=== PATIENT | female | born 1985 | race Caucasian/White ===

== ENCOUNTER 2018-05-22 19:04 | Emergency (ER) | payer OTHER, SELFPAY ==
[~2018-05-22 19:04] MED LIST: ISOVUE-370 76%-LOCM 1 ML ONE
[2018-05-22] MEDS ORDERED: Morphine 4 MG/ML VIAL ONE (19:10)
[2018-05-22] MEDS ORDERED: Ondansetron PF 4 MG/2 ML Vial ONE (19:10)
[2018-05-22 19:47] LABS: #Basophils 0.1 thou/uL (0.0-0.2); #Eosinphils 0.2 thou/uL (0.0-0.7); #Lymphocytes 3.1 thou/uL (1.20-3.40); #Monocytes 0.5 thou/uL (0.11-0.59); #Neutrophils 3.9 thou/uL (1.40-6.50); %Basophils 0.9 % (0.0-1.0); %Lymphocytes 40.6 % (21.0-51.0); %Monocytes 6.3 % (0.0-10.0); %Neutrophils 50.2 % (42.0-75.0); Hemoglobin 14.9 g/dL (12.0-16.0); Mean Corpuscular HGB CONC 33.8 g/dL (32.0-36.0); Mean Corpuscular Hemoglobin 30.1 pg (27.0-31.0); Mean Corpuscular Volume 88.9 fL (78.0-98.0); Mean Platelet Volume 7.8 fL (7.4-10.4); Platelet Count 296 thou/uL (130-400); Red Blood Cell (RBC) Count 4.94 mill/uL (4.20-5.40); White Blood Cell (WBC) Count 7.7 thou/uL (4.8-10.8)
[2018-05-22 19:54] LABS: Prothrombin Time 12.8 SEC (12.0-14.7)
--- NOTE | 2018-05-22 20:10 | CT ---
CT CERVICAL SPINE WITH CORONAL AND SAGITTAL REFORMATIONS: 05/22/18 HISTORY: Level II trauma. FINDINGS/IMPRESSION: No fracture, subluxations or facet malalignment is identified. Discussed over the telephone to the ER physician, Dr. Shorty Roy at 8:06 p.m. POS: SCARLETT
[2018-05-22 20:14] LABS: ALT (SGPT) 154 U/L (8-55); AST (SGOT) 98 U/L (5-34); Alcohol Less than 10 mg/dL (Less than 10); Alkaline Phosphatase 88 U/L (40-150); Anion Gap 20 mmol/L (10-20); BUN (Urea Nitrogen) 14 mg/dL (7.0-18.7); Bilirubin, Total 0.6 mg/dL (0.2-1.2); Calc. Creatinine Clearance 0 mL/min (70-130); Calcium 10.5 mg/dL (7.8-10.44); Carbon Dioxide 20 mmol/L (22-29); Chloride 103 mmol/L (98-107); Estimated GFR-MDRD 69; Globulin 4.1 g/dL (2.4-3.5); Glucose 88 mg/dL (70-105); Lipase 89 U/L (8-78); Potassium 4.1 mmol/L (3.5-5.1); Protein, Total 9.1 g/dL (6.0-8.3); Sodium 139 mmol/L (136-145)
--- NOTE | 2018-05-22 20:16 | RAD ---
RIGHT ANKLE THREE VIEWS: 05/22/18 HISTORY: Trauma, right ankle pain. FINDINGS/IMPRESSION: The ankle mortise is maintained. No acute fracture or dislocation is identified. POS: MARYANN
[2018-05-22 20:23] LABS: BHCG - Serum Negative (NEGATIVE); Pregs Control Background? CLEAR/WHITE (CLR/WHITE); Pregs Control Bar Appear? YES (CONTROL BAR)
--- NOTE | 2018-05-22 20:34 | RAD ---
LEFT ANKLE THREE VIEWS: 05/22/18 HISTORY: Trauma, left ankle pain. FINDINGS/IMPRESSION: The ankle mortise is maintained. No acute fracture or dislocation is seen. POS: MARYANN
--- NOTE | 2018-05-22 20:49 | CT ---
CT BRAIN WITHOUT CONTRAST: 05/22/18 HISTORY: Level II trauma. FINDINGS: No evidence of acute infarct, hemorrhage, midline shift, or abnormal extra-axial fluid collection see n. The ventricular size is normal and the basilar cisterns patent. The bony calvarium is intact. The visualized paranasal sinuses and mastoid air cells are well aerated. IMPRESSION: No CT evidence of acute intracranial process. Results discussed over the telephone with ER physician, Dr. hSorty Roy at 8:02 p.m. POS: SCARLETT
--- NOTE | 2018-05-22 20:56 | CT ---
CT CHEST WITH IV CONTRAST CT ABDOMEN WITH IV CONTRAST CT PELVIS WITH IV CONTRAST CORONAL AND SAGITTAL REFORMATIONS OF THE THORACOLUMBAR SPINE 05/22/18 HISTORY: Level II trauma. FINDINGS: No mediastinal hematoma or intimal flap in the aorta is seen to suggest transection. No pleural or pe ricardial effusions are seen. No pneumothoraces or pulmonary contusions are identified. The liver, spleen, pancreas, adrenal glands, and kidneys are intact. No free air, free fluid is seen in the abdomen or pelvis. The uterus and ovaries are present. The urinary bladder and gallbladder als o appear intact. There are bilateral pars articularis defects at L5 level with minimal anterolisthesis of L5 over S1. No acute fracture or subluxation is otherwise seen in the thoracolumbar spine. IMPRESSION: No CT evidence of acute intrathoracic or solid organ injury. Discussed over the telephone with ER physician, Dr. Shorty Roy at 8:13 p.m. POS: SCARLETT
== END 2018-05-22 21:23 | disposition home or self-care (01) ==
LOC: ERS 19:04
DX: R74.0 Nonspecific elevation of levels of transaminase and lactic acid dehydrogenase [LDH] (principal); F41.9 Anxiety disorder, unspecified; F32.9 Major depressive disorder, single episode, unspecified; K21.9 Gastro-esophageal reflux disease without esophagitis; V43.52XA Car driver injured in collision with other type car in traffic accident, initial encounter
CPT/HCPCS: 70450; 71260; 72125; 74177; 80053; 80307; 83690; 84703; 85025; 85610; 85730; 96374; 96375; J2270; J2405; Q9966

== ENCOUNTER 2018-08-03 08:58 | Inpatient (IN) | payer SELFPAY ==
[2018-08-03] MEDS ORDERED: Ondansetron PF 4 MG/2 ML Vial ONE (09:35)
[2018-08-03] MEDS ORDERED: Morphine 4 MG/ML VIAL ONE ×2 (09:35→12:49)
[2018-08-03 09:52] LABS: #Basophils 0.1 thou/uL (0.0-0.2); #Eosinphils 0.1 thou/uL (0.0-0.7); #Lymphocytes 2.2 thou/uL (1.20-3.40); #Monocytes 0.4 thou/uL (0.11-0.59); #Neutrophils 4.4 thou/uL (1.40-6.50); %Eosinophils 1.9 % (0.0-10.0); %Lymphocytes 30.5 % (21.0-51.0); %Monocytes 5.2 % (0.0-10.0); %Neutrophils 61.4 % (42.0-75.0); Hemoglobin 14.7 g/dL (12.0-16.0); Mean Corpuscular HGB CONC 33.3 g/dL (32.0-36.0); Mean Corpuscular Hemoglobin 29.1 pg (27.0-31.0); Mean Corpuscular Volume 87.4 fL (78.0-98.0); Mean Platelet Volume 7.8 fL (7.4-10.4); Platelet Count 308 thou/uL (130-400); RBC Distribution Width 12.2 % (11.5-14.5); Red Blood Cell (RBC) Count 5.05 mill/uL (4.20-5.40); White Blood Cell (WBC) Count 7.1 thou/uL (4.8-10.8)
[2018-08-03 09:53] LABS: Bilirubin Negative (Negative); Blood, Urine Negative (Negative); Clarity CLEAR (Clear); Glucose, Urine (Dipstick) Negative (Negative); Leukocyte Negative (Negative); Nitrite Negative (Negative); Protein, Urine (Dipstick) Negative (Neg-Trace); Specific Gravity, Urine 1.027 (1.002-1.036); Urobilinogen 0.2 mg/dL (0.2-1.0); pH, Urine 5.5 (5.0-9.0)
[2018-08-03 09:54] LABS: BHCG - Serum Negative (NEGATIVE); Pregs Control Background? CLEAR/WHITE (CLR/WHITE); Pregs Control Bar Appear? YES (CONTROL BAR)
[2018-08-03 10:10] LABS: ALT (SGPT) 181 U/L (8-55); AST (SGOT) 110 U/L (5-34); Albumin 4.9 g/dL (3.5-5.0); Alkaline Phosphatase 81 U/L (40-150); Anion Gap 15 mmol/L (10-20); BUN (Urea Nitrogen) 15 mg/dL (7.0-18.7); Bilirubin, Total 0.7 mg/dL (0.2-1.2); Calc. Creatinine Clearance 0 mL/min (70-130); Calcium 10.3 mg/dL (7.8-10.44); Carbon Dioxide 22 mmol/L (22-29); Chloride 105 mmol/L (98-107); Estimated GFR-MDRD 78; Globulin 3.8 g/dL (2.4-3.5); Glucose 104 mg/dL (70-105); Potassium 4.3 mmol/L (3.5-5.1); Protein, Total 8.7 g/dL (6.0-8.3); Sodium 138 mmol/L (136-145)
[2018-08-03 10:23] LABS: Lipase 2916 U/L (8-78)
--- NOTE | 2018-08-03 10:51 | ULT ---
US Gallbladder RUQ History: [Pain] Comparison: Ultrasound 2017 Findings: Real-time grayscale and color evaluation of the abdomen was performed. Diffuse increased hepatic echotexture. Pancreas not well seen. Visualized portion of the IVC is unrem arkable. There is no cholelithiasis. The right kidney measures 10.9 x 4.2 x 6.1 cm without mass, hydronephrosi s, or abnormal calcifications. Portal vein is patent. Common bile duct measures 4 mm. Impression: Hepatic steatosis. No acute gallbladder pathology.
[2018-08-03] MEDS ORDERED: Ondansetron PF 4 MG/2 ML Vial IVP PRN (12:05)
[2018-08-03] MEDS ORDERED: Senokot S 8.6-50 MG TAB PO PRN (12:05)
[2018-08-03] MEDS ORDERED: Calcium Carbonate 500 MG ChewTAB PO PRN (12:05)
[2018-08-03] MEDS ORDERED: hydrALAZINE 20 MG/ML VIAL SLOW IVP PRN (12:05)
[2018-08-03] MEDS ORDERED: Meperidine HCl/PF 25 MG/ML VIAL SLOW IVP PRN (12:05)
[2018-08-03] MEDS ORDERED: Bisacodyl 5 MG TAB PO PRN (12:05)
[2018-08-03] MEDS ORDERED: Benzonatate 100 MG CAP PO PRN (12:05)
[2018-08-03] MEDS ORDERED: Diabetic Tussin 200 MG/10 ML UDCUP PO PRN (12:05)
[2018-08-03] MEDS: Acetaminophen 325 MG TAB PO PRN (12:17)
[2018-08-03] MEDS ORDERED: Acetaminophen 325 MG TAB ONE (12:18)
[2018-08-03 12:40] LABS: Amphetamine Not Detected (NotDetected); Barbiturates Screen Not Detected (NotDetected); Benzodiazepine Screen Not Detected (NotDetected); Cocaine Metabolite Screen Not Detected (NotDetected); Medtox Control Line Valid? VALID (VALID); Medtox Reader # READER 1; Methadone Not Detected (NotDetected); Methamphetamine Not Detected (NotDetected); Opiate Screen Not Detected (NotDetected); Oxycodone Screen Not Detected (NotDetected); Phencyclidine (PCP) Not Detected (NotDetected); THC/Cannabinoid Screen Not Detected (NotDetected); Tricyclic Screen Not Detected (NotDetected)
[2018-08-03 12:46] LABS: Alcohol Less than 10 mg/dL (Less than 10); Magnesium 2.5 mg/dL (1.6-2.6); Phosphorus 3.7 mg/dL (2.3-4.7)
[2018-08-03] MEDS ORDERED: Bisacodyl 10 MG SUPP PR PRN (12:55)
--- NOTE | 2018-08-03 13:21 | CT ---
CT ABDOMEN AND PELVIS WITH ORAL AND IV CONTRAST: HISTORY: Acute pancreatitis. COMPARISON: 05/22/2018 CORRELATION: Gallbladder ultrasound from same date. FINDINGS: The lung bases are clear. There are changes of hepatic steatosis without focal mass or abnormal bilia ry ductal dilatation. No calcified gallstones are seen. The spleen, adrenal glands and kidneys are normal. The pancreas demonstrates a normal appearance. No pancreatic calcifications or abnormal pancreatic du ctal dilatation is seen. No portal or splenic venous thrombosis is seen. No free air, free fluid or lymphadenopathy seen in the abdomen or pelvis. No abnormally loculated flu id collections are seen to suggest pseudocyst or abscess formation. A normal-appearing appendix is present. The small bowel loops are not abnormally dilated. Uterus and ovaries are present. Bilateral pars articularis defects at L5 level are redemonstrated. IMPRESSION: 1. Hepatic steatosis. 2. No evidence of complications of pancreatitis.
[2018-08-03] MEDS ORDERED: ISOVUE-370 76%-LOCM 1 ML ONE (13:41)
--- NOTE | 2018-08-03 13:51 | HP ---
PRIMARY CARE PHYSICIAN: None. CHIEF COMPLAINT: Abdominal pain. HISTORY OF PRESENTING ILLNESS: Ms. Gaspar is a 32-year-old female with past medical history of pancreatitis during second trimester of in 2016, as well as Salmonella bacteremia at the same time, and epilepsy, who presented to the emergency room with above-mentioned complaint. History is mainly obtained by the patient herself, and electronic medical records have been reviewed. Case has been discussed with admitting ER physician, Dr. Mon. The patient was last admitted to our facility in 2016. At that time, she was in second trimester of . She was diagnosed with pancreatitis and was also found to have Salmonella bacteremia. She came to the emergency room today with a few hours onset of severe abdominal pain. She reports that they had barbecue last evening and went out to [employer] to have ice cream. She did not have any alcohol intake with a barbecue, and she does not drink on a daily basis. Shortly after eating ice cream, she started to have some mild pain starting in the back coming to the front. Later in the night, it became more and more severe, and she describes it as a very sharp pain starting from the back coming to the front, more than 10/10 in intensity. The only thing that would help her with the pain is some heat from her 's body when she would lie against him. She felt nauseated, but did not throw up. She reports constipation for the last 3 days. Her normal bowel movement frequency is at least 1 to 2 every day. She also has been feeling some burning micturition. She also has noticed some smell to her urine. When her pain did not get better, she came to the emergency room. She denies any recent illnesses. She denies any fever, chills, cough, shortness of breath, or chest pain. She denies any blood in her urine or her stools. Upon presentation to the emergency room, she was hemodynamically stable with a blood pressure of 104/61, respirations 18, pulse of 74, saturating 98% on room air. Her examination revealed elevated lipase to 2916. Serum test was negative. Her AST and ALT were also elevated to 100 range. She was given IV fluids and pain medications, and is now being admitted for further evaluation and care with a presumptive diagnosis of acute pancreatitis. Her urinalysis is unremarkable. Urine drug screen ordered by myself is unremarkable. Plasma alcohol level ordered by myself is negligible. Her CBC is within normal limits. During her last acute pancreatitis attack, specific cause was not found. A CT scan done at that time showed fatty liver but no gallstones. An ultrasound done in the ER today also confirms finding of fatty liver but no gallstones. PAST MEDICAL HISTORY: 1. History of epilepsy. 2. History of pancreatitis and salmonella bacteremia in second trimester of in 2016. 3. GERD. 4. The patient reports that her menstrual cycle is quite irregular. Her last cycle was last month that was after a gap of about 4 or 5 months. PAST SURGICAL HISTORY: 1. section. 2. Right knee meniscal tear repair. PSYCHIATRIC HISTORY: Anxiety and depression. SOCIAL HISTORY: No history of drug, tobacco, or alcohol abuse. She is and lives with the family. ALLERGIES: LATEX AND NATURAL RUBBER. HOME MEDICATIONS: None. FAMILY HISTORY: Significant for coronary artery disease and stroke in her grandparents. Bipolar disorder. History of appendicitis in multiple family members. No family history of renal stones or pancreatitis. REVIEW OF SYSTEMS: A 14-point review of system is done. It is negative except for those mentioned in the history and physical. LABORATORY DATA: Her CBC is within normal limit and unremarkable. Serum chemistries unremarkable. Phosphorus and magnesium are within normal limit. AST is 110, ALT elevated to 181, total serum protein is 8.7, normal alkaline phosphatase, and normal total bilirubin. Her lipase is 2916. Urinalysis, unremarkable. Urine drug screen negative. Plasma alcohol less than 10. Serum IgA total 188, which is within normal limits. Abdominal ultrasound by my review shows fatty liver, but no evidence of gallstones or CBD dilatation. CBD is measured 4 mm by the radiologist. PHYSICAL EXAMINATION: VITAL SIGNS: Upon presentation, blood pressure 104/61, pulse of 74, respirations 18, saturating 98% on room air, and temperature 97.8. GENERAL: She is sitting at the side of the bed, appears somewhat uncomfortable. No acute distress. Awake, alert, and oriented x3. HEENT: Mucous membrane is moist and pink. No oropharyngeal exudate or erythema. Head is normocephalic and atraumatic. Pupils are equal, reactive to light and accommodation. Extraocular movement intact. NECK: Supple without any lymphadenopathy, JVD, or bruit. CHEST: Clear to auscultation without any wheezing, rales, or rhonchi. HEART: Rate and rhythm are regular without any murmurs, rubs, or gallops. ABDOMEN: Tender to palpation starting from the right CVA and anteriorly, mainly the epigastric region and right upper quadrant. Bowel sounds are normal. No masses. No peritoneal signs. EXTREMITIES: Free of any cyanosis, clubbing, or edema. NEUROLOGICAL: Nonfocal. SKIN: Free of any rashes or bruises. Feels warm and dry to touch. PSYCHIATRIC: Normal affect. IMPRESSION AND PLAN: 1. Acute pancreatitis. Etiology is not clear at this time. We will obtain a CT scan for further clarification. The patient has had history of pancreatitis in the past, and we will rule out any complications like chronic pancreatitis or pseudocyst formation. We will request consultation with Gastroenterology at this time and keep her n.p.o. and provide her with generous IV fluids. We will also send a lipid panel. Urine drug screen, plasma alcohol level, and serum IgA levels were checked and were found to be within normal limits. The patient is currently hemodynamically stable. p.r.n. IV pain medications will be provided as well as p.r.n. antiemetics. 2. History of epilepsy. Restart home medications as confirmed. In 2016, the patient was on Keppra. Her home medications need to be reconciled. 3. History of Salmonella bacteremia and pancreatitis in 2016. At this time, the patient is not exhibiting any signs or symptoms of sepsis. If she has diarrhea, we can check her stool for bacteria including Clostridium difficile. 4. Deep venous thrombosis and gastrointestinal prophylaxis and p.r.n. medications. DISPOSITION: Ms. Gaspar is currently being admitted to the medical floor for acute pancreatitis of unclear etiology. Estimated length of stay at this time is at least 2 to 3 midnights. Further management will depend upon her clinical course. Job ID: [id number]
[2018-08-03 15:30] VITALS: BMI 42.0
[2018-08-03] MEDS: Sodium Chloride 0.9% 1,000 ML IV SCH ×2 (16:00→16:42)
[2018-08-03] MEDS ORDERED: Sodium Chloride 0.9% 1,000 ML IV SCH (18:05)
[2018-08-03] MEDS: Famotidine/PF 20 mg/2ml Vial SLOW IVP SCH (20:16)
[2018-08-03] MEDS: Ondansetron PF 4 MG/2 ML Vial IVP PRN (20:40)
--- NOTE | 2018-08-03 22:29 | CON ---
DATE OF CONSULTATION: 08/03/2018 REASON FOR CONSULTATION: Acute pancreatitis. CONSULTING PROVIDER: Dr. Magali Hart. HISTORY OF PRESENT ILLNESS: The patient is a 32-year-old female with a past medical history of seizure disorder, GERD, anxiety, depression, irregular menstrual cycles, Salmonella bacteremia in 2016, and acute pancreatitis also in 2016, presenting with complaints of abdominal pain. She states that she was in her usual state of health until yesterday evening when she had the acute onset of increased left upper quadrant abdominal pain. This pain was characterized as a sharp/stabbing/pressure type pain, was constant, radiated to the left upper back and midepigastric region and reached a severity of approximately 9-10/10. The pain was better with pressure to the midepigastric region, placement of heat to the affected area and not moving/decreased physical activity. The pain was worse with sitting up, walking and not having a bowel movement. Associated symptoms included increased nausea, but no actual vomiting as well as a harder to pass stool last night that has been common for the patient. Otherwise, she denies any fevers, chills, hematemesis, melena, hematochezia, lower extremity or upper extremity swelling ascites, encephalopathy, dysphagia, odynophagia, or weight loss. Of note, yesterday evening the patient was consuming a larger/fatty meal consisting primarily of barbecue and later dairy Field ice cream, but otherwise denies any use of medications, herbal supplements or [id number] substances that could have contributed. REVIEW OF SYSTEMS: A 10 category review of systems was obtained with all responses negative except for the pertinent positives as listed in HPI. PAST MEDICAL HISTORY: As per HPI. PAST SURGICAL HISTORY: section x1, right knee meniscal tear repair. FAMILY HISTORY: Denies any GI malignancies or pancreatitis. SOCIAL HISTORY: Denies any tobacco, alcohol, or illicit drug use. OUTPATIENT MEDICATIONS: None. ALLERGIES: LATEX AND NATURAL RUBBER. PHYSICAL EXAMINATION: VITAL SIGNS: Temperature 97.3, pulse 75, blood pressure 109/73, respiratory rate 16, saturating 97% on room air. GENERAL: The patient was lying in bed, in no acute distress. Alert and oriented x4. HEENT: NECK: Supple. No JVD or scleral icterus noted. Normocephalic, atraumatic. CARDIOVASCULAR: Regular rate and rhythm with no discernible murmurs, gallops, or rubs. RESPIRATORY: Clear to auscultation bilaterally with no discernible wheezes or rales. ABDOMEN: Hypoactive bowel sounds. Soft, nondistended. Tenderness to palpation in the midepigastric left upper quadrant and left mid abdomen. EXTREMITIES: No cyanosis, clubbing, or edema. LABORATORY DATA: CBC with a white blood cell count of 7.1, hemoglobin 14.7, hematocrit 44.1, platelets 308. Chemistry with a sodium of 138, potassium 4.3, chloride 105, CO2 of 22, BUN 15, creatinine 0.85, glucose 104, AST 110, ALT 181, alkaline phosphatase 81, total bilirubin 0.7, albumin 4.9, calcium 10.3, lipase 2916. test negative. Urinalysis was normal and toxicology did not show any substances. IMAGING DATA: Right upper quadrant ultrasound was obtained on August 03, 2018, which showed diffuse increased hepatic echotexture consistent with hepatic steatosis, but otherwise did not show any acute gallbladder pathology nor did it show any dilation of the common bile duct, which measured approximately [address] of the abdomen and pelvis was also obtained on August 03, 2018, which then echoed changes consistent with hepatic steatosis without focal mass or abnormal biliary ductal dilatation. No calcified gallstones were seen. The pancreas demonstrated a normal appearance with no pancreatic calcifications or abnormal pancreatic ductal dilatation. No free air, free fluid or lymphadenopathy was seen. ASSESSMENT AND PLAN: The patient is a 32-year-old female with past medical history of seizure disorder, gastroesophageal reflux disorder, anxiety, depression, irregular menstrual cycles, Salmonella bacteremia in 2016 and acute pancreatitis in 2016, presenting with recurrent acute pancreatitis. Recurrent acute pancreatitis: The patient is presenting with acute onset of left upper quadrant abdominal pain, which radiates to the midepigastric and left upper back and characterized as a stabbing/pressure type sensation that is constant and reaches a severity of 9-10/10. When compared to her prior pancreatitis pain, this pain is very similar in terms of its character and location. Upon review of the patient's chart, in 2016, she was noted to have Salmonella bacteremia as well as an ongoing at the time of her first episode of acute pancreatitis and while the formation of gallstones/microlithiasis is common during , there was no data or imaging at that time to lend credence to that diagnosis rather the Salmonella was more likely the causative etiology of her acute pancreatitis being one of the few infections that can cause this particular disease (mycoplasma, Legionella and leptospira can also cause it as well). At this time per labs and imaging, she has what would be considered acute uncomplicated pancreatitis with lack of inflammatory changes around the pancreas, pseudocyst formation or necrosis. At this point, the differential for the current etiology for pancreatitis could be microlithiasis (less likely), hypertriglyceridemia, trauma (the patient did land on her stomach hard yesterday evening), recurrent infection (less likely) or recurrent idiopathic pancreatitis. RECOMMENDATIONS: 1. We would obtain blood culture x2 to assess for possible bacteremia contributing to her current pancreatitis at this time albeit unlikely. 2. We would continue with aggressive IV fluid resuscitation over the next 24 hours. 3. We would maintain an n.p.o. status until tomorrow morning when one could possibly consider advancing her diet to clear liquid diet. 4. Pain control per primary team. Agree with aggressive antiemetic control. 5. We would follow up on lipid profile in the morning for possible hypertriglyceridemia contributing to her pancreatitis. 6. We will continue to follow. Please call with any questions. Job ID: [id number]
[2018-08-04] MEDS: Sodium Chloride 0.9% 1,000 ML IV SCH ×3 (00:29→20:17)
[2018-08-04 05:22] LABS: #Basophils 0.1 thou/uL (0.0-0.2); #Eosinphils 0.1 thou/uL (0.0-0.7); #Lymphocytes 2.5 thou/uL (1.20-3.40); #Monocytes 0.3 thou/uL (0.11-0.59); #Neutrophils 2.9 thou/uL (1.40-6.50); %Basophils 0.9 % (0.0-1.0); %Eosinophils 2.4 % (0.0-10.0); %Lymphocytes 42.9 % (21.0-51.0); %Monocytes 5.2 % (0.0-10.0); %Neutrophils 48.5 % (42.0-75.0); Hemoglobin 12.8 g/dL (12.0-16.0); Mean Corpuscular HGB CONC 32.9 g/dL (32.0-36.0); Mean Corpuscular Hemoglobin 29.5 pg (27.0-31.0); Mean Corpuscular Volume 89.8 fL (78.0-98.0); Mean Platelet Volume 7.6 fL (7.4-10.4); Platelet Count 236 thou/uL (130-400); RBC Distribution Width 12.2 % (11.5-14.5); Red Blood Cell (RBC) Count 4.34 mill/uL (4.20-5.40); White Blood Cell (WBC) Count 5.9 thou/uL (4.8-10.8)
[2018-08-04 05:46] LABS: ALT (SGPT) 122 U/L (8-55); AST (SGOT) 65 U/L (5-34); Albumin 4.1 g/dL (3.5-5.0); Alkaline Phosphatase 66 U/L (40-150); Anion Gap 12 mmol/L (10-20); BUN (Urea Nitrogen) 10 mg/dL (7.0-18.7); Bilirubin, Total 0.6 mg/dL (0.2-1.2); Calc. Creatinine Clearance 165 mL/min (70-130); Calcium 9.6 mg/dL (7.8-10.44); Carbon Dioxide 24 mmol/L (22-29); Cardiac Risk 6.2 (Less than 4.5); Chloride 108 mmol/L (98-107); Cholesterol 235 mg/dl (< 200 Desired); Estimated GFR-MDRD 80; Globulin 3.2 g/dL (2.4-3.5); Glucose 88 mg/dL (70-105); HDL Cholesterol 38 mg/dL (>60 Neg Risk); LDL Cholesterol, Calculated 165 mg/dL; Lipase 496 U/L (8-78); Potassium 4.1 mmol/L (3.5-5.1); Protein, Total 7.3 g/dL (6.0-8.3); Sodium 140 mmol/L (136-145); Triglycerides 159 mg/dL (Less than 150)
[2018-08-04] MEDS: traMADol HCl 50 MG TAB PO PRN (05:47)
[2018-08-04] MEDS: Ondansetron PF 4 MG/2 ML Vial IVP PRN ×3 (08:09→23:30)
[2018-08-04] MEDS: Enoxaparin Sodium 40 MG/0.4 ML SYRINGE SC SCH (08:09)
[2018-08-04] MEDS: Famotidine/PF 20 mg/2ml Vial SLOW IVP SCH ×2 (08:09→20:16)
--- NOTE | 2018-08-04 10:42 | PDOC.PN ---
- Subjective Encounter Start Date: 08/04/18 Encounter Start Time: 07:50 -: old records requested/rev Patient seen and examined. No new complaints. No overnight events less abdominal pain, wants to eat - Objective MAR Reviewed: Yes Vital Signs & Weight: Vital Signs (12 hours) Temp Pulse Resp BP BP Pulse Ox 08/04/18 08:00 97 08/04/18 07:11 98.1 F 71 19 125/80 97 08/04/18 04:00 98.0 F 78 18 113/75 97 08/03/18 23:39 98.5 F 69 18 97/66 98 Weight Weight 236 lb 15.951 oz I&O: 08/03/18 08/04/18 08/05/18 06:59 06:59 06:59 Intake Total 1670 Balance 1670 Result Diagrams: 08/04/18 04:42 08/04/18 04:42 Radiology Reviewed by me: Yes Phys Exam - Physical Examination Constitutional: NAD HEENT: PERRLA, moist MMs, sclera anicteric Neck: no JVD, supple Respiratory: no wheezing, no rales, no rhonchi Cardiovascular: RRR, no significant murmur, no rub Gastrointestinal: soft, no distention, positive bowel sounds Musculoskeletal: no edema, pulses present Neurological: non-focal, normal sensation, moves all 4 limbs Lymphatic: no nodes Psychiatric: normal affect, A&O x 3 Skin: no rash, normal turgor Dx/Plan (1) Acute pancreatitis Code(s): K85.90 - ACUTE PANCREATITIS WITHOUT NECROSIS OR INFECTION, UNSP Status: Acute (2) Anxiety and depression Code(s): F41.9 - ANXIETY DISORDER, UNSPECIFIED; F32.9 - MAJOR DEPRESSIVE DISORDER, SINGLE EPISODE, UNSPECIFIED Status: Chronic (3) Epilepsy Code(s): G40.909 - EPILEPSY, UNSP, NOT INTRACTABLE, WITHOUT STATUS EPILEPTICUS Status: Chronic (4) Hepatic steatosis Code(s): K76.0 - FATTY (CHANGE OF) LIVER, NOT ELSEWHERE CLASSIFIED Status: Chronic (5) Morbid obesity with BMI of 40.0-44.9, adult Code(s): E66.01 - MORBID (SEVERE) OBESITY DUE TO EXCESS CALORIES; Z68.41 - BODY MASS INDEX (BMI) 40.0-44.9, ADULT Status: Chronic - Plan cont current plan of care * medication reviewed as below * symptomatic treatment * repeat labs tomorrow * start clear liquid diet today * pain controlled and improving. Review of Systems - Review of Systems ENT: negative: Ear Pain, Ear Discharge, Nose Pain, Nose Discharge, Nose Congestion, Mouth Pain, Mouth Swelling, Throat Pain, Throat Swelling, Other Respiratory: negative: Cough, Dry, Shortness of Breath, Hemoptysis, SOB with Excertion, Pleuritic Pain, Sputum, Wheezing Cardiovascular: negative: chest pain, palpitations, orthopnea, paroxysmal nocturnal dyspnea, edema, light headedness, other Gastrointestinal: Abdominal Pain. negative: Nausea, Vomiting, Diarrhea, Constipation, Melena, Hematochezia, Other Genitourinary: negative: Dysuria, Frequency, Incontinence, Hematuria, Retention , Other Musculoskeletal: negative: Neck Pain, Shoulder Pain, Arm Pain, Back Pain, Hand Pain, Leg Pain, Foot Pain, Other Skin: negative: Rash, Lesions, Guru, Bruising, Other - Medications/Allergies Allergies/Adverse Reactions: Allergies Allergy/AdvReac Type Severity Reaction Status Date / Time latex Allergy Mild Rash Verified 12/18/15 16:43 Medications: Current Medications Acetaminophen (Tylenol) 650 mg PO Q4H PRN PRN Reason: Headache/Fever/Mild Pain (1-3) Last Admin: 08/03/18 12:17 Dose: 650 mg Benzonatate (Tessalon) 100 mg PO Q6H PRN PRN Reason: Cough Bisacodyl (Dulcolax) 10 mg PO DAILYPRN PRN PRN Reason: Constipation Bisacodyl (Dulcolax) 10 mg [place] Q8H PRN PRN Reason: Constipation Calcium Carbonate (Tums) 1,000 mg PO Q4H PRN PRN Reason: Heartburn or Indigestion Enoxaparin Sodium (Lovenox) 40 mg SC 0900 [facility] Last Admin: 08/04/18 08:09 Dose: 40 mg Famotidine (Pepcid) 20 mg SLOW IVP BID [facility] Last Admin: 08/04/18 08:09 Dose: 20 mg Guaifenesin (Robitussin Sf) 200 mg PO Q4H PRN PRN Reason: Cough Hydralazine HCl (Apresoline) 10 mg SLOW IVP Q4H PRN PRN Reason: SBP > 170 and HR < 70 Sodium Chloride (Normal Saline 0.9%) 1,000 mls @ 100 mls/hr IV .Q10H MARÍA Last Admin: 08/04/18 08:20 Dose: 1,000 mls Ondansetron HCl (Zofran) 4 mg IVP Q6H PRN PRN Reason: Nausea/Vomiting Last Admin: 08/04/18 08:09 Dose: 4 mg Senna/Docusate Sodium (Senokot S) 2 tab PO BID PRN PRN Reason: Constipation Sodium Chloride (Flush - Normal Saline) 10 ml IVF Q12HR [facility] Last Admin: 08/04/18 08:20 Dose: 10 ml Sodium Chloride (Flush - Normal Saline) 10 ml IVF PRN PRN PRN Reason: Saline Flush Tramadol HCl (Ultram) 50 mg PO Q4H PRN PRN Reason: Moderate Pain (4-6) Last Admin: 08/04/18 05:47 Dose: 50 mg
--- NOTE | 2018-08-04 14:05 | PRG ---
DATE OF SERVICE: 08/04/2018 REASON FOR CONSULTATION: Acute uncomplicated pancreatitis. SUBJECTIVE: The patient states that she is feeling better today with significantly improved midepigastric abdominal pain when compared to prior to admission. Currently, she states that her pain is approximately 2 to 3/10 in severity. She was able to tolerate a clear liquid diet earlier this morning and continues to be hungry with no increase in her abdominal pain, nausea, or vomiting after ingestion of this morning food. She did have some increased nausea and vomiting last night with administration of pain medication (Demerol), but this has since resolved. Currently, she denies any nausea, vomiting, fevers, chills, GI bleeding, ascites, or encephalopathy. OBJECTIVE: VITAL SIGNS: Temperature 98.1, pulse 71, blood pressure 125/80, respiratory rate 19, and saturating 97% on room air. GENERAL: The patient is lying in bed, in no acute distress. Alert and oriented x4. CARDIOVASCULAR: Regular rate and rhythm. RESPIRATORY: Clear to auscultation bilaterally. ABDOMEN: Normoactive bowel sounds. Soft, nondistended, mild tenderness to palpation in the midepigastric region. EXTREMITIES: No cyanosis, clubbing, or edema. LABORATORY DATA: CBC with a white blood cell count of 5.9, hemoglobin 12.8, hematocrit 39, and platelets 236. Chemistry with a sodium of 140, potassium 4.1, chloride 108, CO2 of 24, BUN 10, creatinine 0.83, glucose 88. AST 65, ALT 122, alkaline phosphatase 66, total bilirubin 0.6, triglycerides 159, total cholesterol 235, LDL 165. IMAGING DATA: No current GI imaging is available for review. ASSESSMENT AND PLAN: The patient is a 32-year-old female with past medical history of seizure disorder, gastroesophageal reflux disease, anxiety, depression, irregular menstrual cycle, Salmonella bacteremia in 2016, and prior episode of acute pancreatitis also in 2016, presenting with recurrent acute pancreatitis. Recurrent acute pancreatitis: The patient is presenting with a clinical picture as well as image and laboratory data consistent with recurrent acute pancreatitis. Upon review of the patient's chart, in 2016, she was noted to have Salmonella bacteremia, which could have potentially contributed to her initial episode of pancreatitis. However, at this time, there is no obvious etiology for her recurrent attack of pancreatitis during this admission and maybe more related to just her prior history of pancreatitis. With her triglycerides being approximately 159, the likelihood of hypertriglyceridemia generating pancreatitis is highly unlikely. Current differential could include microlithiasis (less likely), pancreatic divisum (less likely), trauma to the midepigastric region, recurrent infection (less likely), or recurrent idiopathic pancreatitis (more likely). RECOMMENDATIONS: 1. We will continue with IV fluid resuscitation at the current rate, given the increased dose of IV fluids over the last 24 hours and response to treatment evidenced by a decreased BUN. 2. We would advance the patient's diet as tolerated. 3. Pain control per Primary Team. 4. I will follow up on the serum IgG4 for possible autoimmune pancreatitis, although this is a much less likely diagnosis. 5. We will continue to trend LFTs daily for response to treatment with most likely etiology being pancreatic inflammation causing inflammation of the liver. We will sign off at this time. Please call with any additional questions. Job ID: [id number]
[2018-08-04] MEDS: Acetaminophen 325 MG TAB PO PRN (18:10)
[2018-08-05 08:11] LABS: #Basophils 0.1 thou/uL (0.0-0.2); #Eosinphils 0.1 thou/uL (0.0-0.7); #Lymphocytes 2.2 thou/uL (1.20-3.40); #Monocytes 0.2 thou/uL (0.11-0.59); #Neutrophils 2.3 thou/uL (1.40-6.50); %Basophils 1.2 % (0.0-1.0); %Lymphocytes 44.5 % (21.0-51.0); %Monocytes 4.8 % (0.0-10.0); %Neutrophils 47.6 % (42.0-75.0); Hemoglobin 12.9 g/dL (12.0-16.0); Mean Corpuscular HGB CONC 33.8 g/dL (32.0-36.0); Mean Corpuscular Hemoglobin 30.1 pg (27.0-31.0); Mean Corpuscular Volume 88.9 fL (78.0-98.0); Mean Platelet Volume 7.8 fL (7.4-10.4); Platelet Count 229 thou/uL (130-400); RBC Distribution Width 12.2 % (11.5-14.5); Red Blood Cell (RBC) Count 4.29 mill/uL (4.20-5.40); White Blood Cell (WBC) Count 4.9 thou/uL (4.8-10.8)
[2018-08-05 08:27] LABS: ALT (SGPT) 109 U/L (8-55); AST (SGOT) 69 U/L (5-34); Albumin 3.9 g/dL (3.5-5.0); Alkaline Phosphatase 63 U/L (40-150); Anion Gap 12 mmol/L (10-20); BUN (Urea Nitrogen) 8 mg/dL (7.0-18.7); Bilirubin, Total 0.5 mg/dL (0.2-1.2); Calc. Creatinine Clearance 169 mL/min (70-130); Calcium 9.3 mg/dL (7.8-10.44); Carbon Dioxide 23 mmol/L (22-29); Chloride 108 mmol/L (98-107); Estimated GFR-MDRD 82; Glucose 91 mg/dL (70-105); Lipase 293 U/L (8-78); Potassium 3.7 mmol/L (3.5-5.1); Protein, Total 6.9 g/dL (6.0-8.3); Sodium 139 mmol/L (136-145)
[2018-08-05] MEDS: Famotidine/PF 20 mg/2ml Vial SLOW IVP SCH (09:28)
[2018-08-05] MEDS: Sodium Chloride 0.9% 1,000 ML IV SCH ×3 (09:29→21:49)
[2018-08-05] MEDS: Enoxaparin Sodium 40 MG/0.4 ML SYRINGE SC SCH (09:29)
--- NOTE | 2018-08-05 16:28 | PDOC.PN ---
- Subjective Encounter Start Date: 08/05/18 Encounter Start Time: 16:25 Subjective: f/u for acute pancreatitis tx conservatively with IVF's, pain control -: and NPO. Currently advanced to full liquids and tolerating. Minimal -: abd pain and lipase trending down. - Objective MAR Reviewed: Yes Vital Signs & Weight: Vital Signs (12 hours) Temp Pulse Resp BP Pulse Ox 08/05/18 08:00 97.9 F 72 18 104/71 98 Weight Admit Weight 236 lb 15.951 oz Weight 236 lb 15.951 oz I&O: 08/04/18 08/05/18 08/06/18 06:59 06:59 06:59 Intake Total 1670 2100 Balance 1670 2100 Result Diagrams: 08/05/18 07:07 08/05/18 07:07 Additional Labs: Microbiology 08/04/18 12:19 Venous blood - Right Hand Blood Culture - Preliminary Specimen has been received and culture in progress. No Growth to date. 08/04/18 12:14 Venous blood - Left Hand Blood Culture - Preliminary Specimen has been received and culture in progress. No Growth to date. Laboratory Tests 08/03/18 08/04/18 08/05/18 09:41 04:42 07:07 AST 110 H 65 H 69 H ALT 181 H 122 H 109 H Triglycerides 159 H Cholesterol 235 H LDL Cholesterol, Calc 165 HDL Cholesterol 38 Lipase 2916 H 496 H 293 H Radiology Reviewed by me: Yes (CT abd/pel - no acute process, hepatic steatosis) Phys Exam - Physical Examination Constitutional: NAD HEENT: PERRLA, sclera anicteric, oral pharynx no lesions Neck: no nodes, no JVD, supple, full ROM Respiratory: no wheezing, no rales, no rhonchi, clear to auscultation bilateral S1, S2 Cardiovascular: RRR, no significant murmur, no rub, gallop mild TTP in mid-epigastrium Gastrointestinal: soft, no distention, positive bowel sounds Musculoskeletal: no edema, pulses present Neurological: normal sensation, moves all 4 limbs Psychiatric: A&O x 3 Skin: normal turgor, cap refill <2 seconds Dx/Plan (1) Acute pancreatitis Code(s): K85.90 - ACUTE PANCREATITIS WITHOUT NECROSIS OR INFECTION, UNSP Status: Acute Comment: Likely biliary dsykinesia with overall improved Lipase trend, repeat Lipase in am, start Regular diet (2) Transaminitis Code(s): R74.0 - NONSPEC ELEV OF LEVELS OF TRANSAMNS & LACTIC ACID DEHYDRGNSE Status: Acute Comment: Secondary to #1, improved trend (3) Hepatic steatosis Code(s): K76.0 - FATTY (CHANGE OF) LIVER, NOT ELSEWHERE CLASSIFIED Status: Chronic Comment: See above, low-fat diet recommended, statin for d/c (4) Morbid obesity with BMI of 40.0-44.9, adult Code(s): E66.01 - MORBID (SEVERE) OBESITY DUE TO EXCESS CALORIES; Z68.41 - BODY MASS INDEX (BMI) 40.0-44.9, ADULT Status: Chronic Comment: Contributing factor to steatosis and pancreatitis (5) HLD (hyperlipidemia) Code(s): E78.5 - HYPERLIPIDEMIA, UNSPECIFIED Status: Chronic Comment: Consider statin agent for half-way - Plan out of bed/ambulate, DVT proph w/SCDs Stable currently -: Decrease IVF's 50ml/h -: Advance to Heart Healthy Diet -: OOB/ambulate -: AM lab: CMP, Lipase * Likely home in am
[2018-08-05] MEDS: Famotidine 20 MG TAB PO SCH (19:59)
[2018-08-06] MEDS: traMADol HCl 50 MG TAB PO PRN (05:34)
[2018-08-06] MEDS: Sodium Chloride 0.9% 1,000 ML IV SCH (07:22)
[2018-08-06 08:00] VITALS: BP 109/75; TEMP 97.8
[2018-08-06] MEDS: Famotidine 20 MG TAB PO SCH (08:04)
[2018-08-06] MEDS: Enoxaparin Sodium 40 MG/0.4 ML SYRINGE SC SCH (08:05)
--- NOTE | 2018-08-06 11:27 | DIS ---
DATE OF ADMISSION: 08/03/2018 DATE OF DISCHARGE: 08/06/2018 DISCHARGE DIAGNOSES: 1. Acute pancreatitis, likely due to biliary dyskinesia and high-fat diet, resolving. 2. Transaminitis secondary to acute pancreatitis, improved. 3. Hepatic steatosis. 4. Obesity. 5. Hyperlipidemia. CONSULTATIONS: Dr. Ram with GI Service. PERTINENT LABORATORY AND X-RAY FINDINGS: AST ranged between 65 to 110, ALT ranged between 109 to 181. Total cholesterol 235, triglycerides 159, HDL 38, and LDL 165. Lipase ranged between 293 to 2916. Serum beta-hCG negative on 08/03/2018. CBC within normal limits. Urinalysis negative. Urine drug screen dated 08/03/2018, negative. Plasma alcohol level less than 10. Blood cultures x2 dated 08/04/2018 showed no growth to date. Abdominal ultrasound dated 08/03/2018 showed hepatic steatosis without acute gallbladder pathology. CT of the abdomen and pelvis dated 08/03/2018 showed hepatic steatosis. No evidence of acute pancreatic pathology. HOSPITAL COURSE: The patient was initially admitted after presenting with abdominal pain. The patient with prior history of pancreatitis approximately 3 years prior to this admission. The patient underwent evaluation including lipase, which was noted at 2916. The patient was placed on IV fluids as well as given IV pain control and n.p.o. status. The patient clinically improved with conservative management and was evaluated by the GI Service, however, no specific acute intervention was recommended and CT of the abdomen and pelvis and abdominal ultrasound revealed no acute pathology. The patient clinically stabilized with conservative management, advancing diet from clear liquids to full liquids and regular diet prior to discharge. Overall, the patient did remain clinically stable during the hospital course with stable vital signs. I have examined the patient at the time of discharge and discussed followup instructions. The patient verbalized understanding and in agreement and ready for discharge on 08/06/2018. DISCHARGE MEDICATIONS: None. FOLLOWUP: The patient may follow up with the primary care provider of choice or local [facility]. CONDITION ON DISCHARGE: Stable. ACTIVITY: [place]. DIET: Low-fat and heart healthy. CODE STATUS: Full. DISPOSITION: To home on 08/06/2018. Job ID: [id number]
== END 2018-08-06 10:23 | disposition home or self-care (01) | DRG 439 ==
LOC: ERS 08:58 → ERHOLD 11:57 → T4-A 15:04
PROVIDERS: ADMIT Internal Medicine; ATTEND Internal Medicine
DX: K85.90 Acute pancreatitis without necrosis or infection, unspecified (principal); Z68.41 Body mass index [BMI] 40.0-44.9, adult; K21.9 Gastro-esophageal reflux disease without esophagitis; F41.9 Anxiety disorder, unspecified; F32.9 Major depressive disorder, single episode, unspecified; G40.909 Epilepsy, unspecified, not intractable, without status epilepticus; K76.0 Fatty (change of) liver, not elsewhere classified; E66.01 Morbid (severe) obesity due to excess calories; K82.8 Other specified diseases of gallbladder; Z91.040 Latex allergy status; Z87.19 Personal history of other diseases of the digestive system; Z79.899 Other long term (current) drug therapy
CPT/HCPCS: 36415; 74160; 76705; 80053; 80061; 80306; 80307; 81003; 82150; 82787; 83690; 83735; 84100; 84703; 85025; 87040; 96361; 96374; 96375; 96376; J1650; J2175; J2270; J2405; Q9966; S0028

== ENCOUNTER 2020-08-01 08:36 | Emergency (ER) | payer SELFPAY ==
[2020-08-01] MEDS ORDERED: Ondansetron PF 4 MG/2 ML Vial ONE (09:50)
[2020-08-01] MEDS ORDERED: Ketorolac Tromethamine 30 MG/ML VIAL ONE (09:58)
[2020-08-01 14:14] LABS: ALT (SGPT) 49 U/L (8-55); AST (SGOT) 43 U/L (5-34); Albumin 4.2 g/dL (3.5-5.0); Alkaline Phosphatase 62 U/L (40-110); Anion Gap 16 mmol/L (10-20); BUN (Urea Nitrogen) 9 mg/dL (7.0-18.7); Bilirubin, Total 0.7 mg/dL (0.2-1.2); Calc. Creatinine Clearance 0 mL/min (70-130); Carbon Dioxide 19 mmol/L (22-29); Chloride 105 mmol/L (98-107); Globulin 3.5 g/dL (2.4-3.5); Glucose 102 mg/dL (70-105); Potassium 3.9 mmol/L (3.5-5.1); Protein, Total 7.7 g/dL (6.0-8.3); Sodium 136 mmol/L (136-145)
[2020-08-01 14:26] LABS: BHCG - Serum Negative (NEGATIVE); Pregs Control Background? CLEAR/WHITE (CLR/WHITE); Pregs Control Bar Appear? YES (CONTROL BAR)
[2020-08-01 15:28] LABS: Hemoglobin 13.1 g/dL (12.0-16.0); Mean Corpuscular Hemoglobin 29.5 pg (27.0-31.0); Mean Corpuscular Volume 88.3 fL (78.0-98.0); Red Blood Cell (RBC) Count 4.44 mill/uL (4.20-5.40); White Blood Cell (WBC) Count 9.4 thou/uL (4.8-10.8)
[2020-08-01 15:29] LABS: #Basophils 0.1 thou/uL (0.0-0.2); #Eosinphils 0.2 thou/uL (0.0-0.7); #Lymphocytes 2.2 thou/uL (1.20-3.40); #Monocytes 0.6 thou/uL (0.11-0.59); #Neutrophils 6.5 thou/uL (1.40-6.50); %Basophils 0.7 % (0.0-1.0); %Eosinophils 1.6 % (0.0-10.0); %Lymphocytes 23.4 % (21.0-51.0); %Monocytes 5.9 % (0.0-10.0); %Neutrophils 68.5 % (42.0-75.0); Mean Corpuscular HGB CONC 33.4 g/dL (32.0-36.0); Mean Platelet Volume 7.4 fL (7.4-10.4); Platelet Count 314 thou/uL (130-400); RBC Distribution Width 11.9 % (11.5-14.5)
[2020-08-01 19:19] LABS: SARS-CoV-2 PCR by NAA Not Detected (NotDetected)
== END 2020-08-01 11:58 | disposition home or self-care (01) ==
LOC: ERS 08:36
DX: J20.9 Acute bronchitis, unspecified (principal); K21.9 Gastro-esophageal reflux disease without esophagitis
CPT/HCPCS: 36415; 71045; 80053; 84703; 85025; 85379; 87635; 93005; 96374; 96375; J1885; J2405; U0003; U0005

== ENCOUNTER 2020-10-08 05:29 | Emergency (ER) | payer SELFPAY ==
[2020-10-08] MEDS ORDERED: Ondansetron PF 4 MG/2 ML Vial ONE ×2 (05:56→06:02)
[2020-10-08] MEDS ORDERED: Mag-Al 1200 mg/1200 mg/30 ML UDCUP ONE (05:56)
[2020-10-08] MEDS ORDERED: Lidocaine Viscous Sol 2% 15 ml UD Cup ONE (05:56)
[2020-10-08 06:14] LABS: BHCG - Serum Negative (NEGATIVE); Pregs Control Background? CLEAR/WHITE (CLR/WHITE); Pregs Control Bar Appear? YES (CONTROL BAR)
[2020-10-08 06:16] LABS: #Basophils 0.1 thou/uL (0.0-0.2); #Eosinphils 0.1 thou/uL (0.0-0.7); #Lymphocytes 2.2 thou/uL (1.20-3.40); #Monocytes 0.3 thou/uL (0.11-0.59); #Neutrophils 3.5 thou/uL (1.40-6.50); %Basophils 1.4 % (0.0-1.0); %Eosinophils 2.3 % (0.0-10.0); %Lymphocytes 34.6 % (21.0-51.0); %Monocytes 5.5 % (0.0-10.0); %Neutrophils 56.2 % (42.0-75.0); Hemoglobin 13.7 g/dL (12.0-16.0); Mean Corpuscular HGB CONC 35.1 g/dL (32.0-36.0); Mean Corpuscular Hemoglobin 30.5 pg (27.0-31.0); Mean Corpuscular Volume 86.8 fL (78.0-98.0); Mean Platelet Volume 8.3 fL (7.4-10.4); Platelet Count 248 thou/uL (130-400); RBC Distribution Width 11.9 % (11.5-14.5); Red Blood Cell (RBC) Count 4.48 mill/uL (4.20-5.40); White Blood Cell (WBC) Count 6.2 thou/uL (4.8-10.8)
[2020-10-08 06:26] LABS: ALT (SGPT) 90 U/L (8-55); AST (SGOT) 65 U/L (5-34); Albumin 4.6 g/dL (3.5-5.0); Alkaline Phosphatase 62 U/L (40-110); Anion Gap 15 mmol/L (10-20); BUN (Urea Nitrogen) 10 mg/dL (7.0-18.7); Bilirubin, Total 0.5 mg/dL (0.2-1.2); Calc. Creatinine Clearance 0 mL/min (70-130); Calcium 9.4 mg/dL (7.8-10.44); Carbon Dioxide 20 mmol/L (22-29); Chloride 107 mmol/L (98-107); Globulin 3.8 g/dL (2.4-3.5); Glucose 108 mg/dL (70-105); Lipase 42 U/L (8-78); Potassium 3.8 mmol/L (3.5-5.1); Protein, Total 8.4 g/dL (6.0-8.3); Sodium 138 mmol/L (136-145)
[2020-10-08] MEDS ORDERED: Haloperidol Lactate 5 MG/ML VIAL ONE (06:35)
[2020-10-08 06:51] LABS: Bacteria/HPF None Seen HPF (None Seen); Bilirubin Negative (Negative); Blood, Urine Negative (Negative); Clarity Clear (Clear); Glucose, Urine (Dipstick) Normal (Negative); Ketone, Urine Negative (Negative); Leukocyte 250 Leu/uL (Negative); Nitrite Negative (Negative); Protein, Urine (Dipstick) Negative (Neg-Trace); RBC/HPF 0-3 HPF (0-3); Specific Gravity, Urine 1.016 (1.002-1.036); Urobilinogen Normal mg/dL (Less than 2)
[2020-10-08 07:43] LABS: Amphetamine Not Detected (NotDetected); Barbiturates Screen Not Detected (NotDetected); Benzodiazepine Screen Not Detected (NotDetected); Cocaine Metabolite Screen Not Detected (NotDetected); Medtox Control Line Valid? VALID (VALID); Medtox Reader # READER 1; Methadone Not Detected (NotDetected); Methamphetamine Not Detected (NotDetected); Opiate Screen Not Detected (NotDetected); Oxycodone Screen Not Detected (NotDetected); Phencyclidine (PCP) Not Detected (NotDetected); THC/Cannabinoid Screen Not Detected (NotDetected); Tricyclic Screen Not Detected (NotDetected)
== END 2020-10-08 07:43 | disposition home or self-care (01) ==
LOC: ERS 05:29
DX: R10.13 Epigastric pain (principal); N39.0 Urinary tract infection, site not specified; R11.2 Nausea with vomiting, unspecified; K21.9 Gastro-esophageal reflux disease without esophagitis
CPT/HCPCS: 80053; 80306; 81003; 81015; 83690; 84703; 85025; 96374; 96375; J1630; J2405

== ENCOUNTER 2021-06-04 16:28 | Emergency (ER) | payer MEDICAID, SELFPAY ==
[2021-06-04] MEDS ORDERED: Ketorolac Tromethamine 30 MG/ML VIAL ONE (17:57)
== END 2021-06-04 17:55 | disposition home or self-care (01) ==
LOC: ERS 16:28
DX: K03.81 Cracked tooth (principal); K21.9 Gastro-esophageal reflux disease without esophagitis
CPT/HCPCS: 96372; 99282; J1885

== ENCOUNTER 2023-08-27 21:12 | Emergency (ER) | payer MEDICAID, SELFPAY ==
[2023-08-27] MEDS ORDERED: Ketorolac Tromethamine 30 MG (1 mL) VIAL ONE (23:50)
== END 2023-08-28 00:15 | disposition home or self-care (01) ==
LOC: ERS 21:12
DX: M25.522 Pain in left elbow (principal)
CPT/HCPCS: 96372; J1885

== ENCOUNTER 2024-01-01 13:01 | Emergency (ER) | payer BC, OTHER ==
[2024-01-01 13:43] LABS: #Basophils 0.06 10x3/uL (0.0-0.2); %Eosinophils 2.1 % (0.0-10.0); %Lymphocytes 39.8 % (21.0-51.0); %Monocytes 4.2 % (0.0-10.0); %Neutrophils 52.7 % (42.0-75.0); Hematocrit 40.3 % (36.0-47.0); Hemoglobin 13.8 g/dL (12.0-16.0); Mean Corpuscular HGB CONC 34.2 g/dL (32.0-36.0); Mean Corpuscular Hemoglobin 30.5 pg (27.0-31.0); Mean Platelet Volume 10.1 fL (7.4-10.4); Platelet Count 303 10x3/uL (130-400); RBC Distribution Width 12.5 % (11.5-14.5); Red Blood Cell (RBC) Count 4.53 mill/uL (4.20-5.40)
[2024-01-01 13:52] LABS: BHCG - Serum Negative (NEGATIVE); Pregs Control Background? CLEAR/WHITE (CLR/WHITE); Pregs Control Bar Appear? YES (CONTROL BAR)
[2024-01-01 13:59] LABS: ALT (SGPT) 47 U/L (8-55); AST (SGOT) 40 U/L (5-34); Albumin 4.2 g/dL (3.5-5.0); Alkaline Phosphatase 59 U/L (40-110); Anion Gap 12 mmol/L (10-20); BUN (Urea Nitrogen) 12 mg/dL (7.0-18.7); Bilirubin, Total 0.5 mg/dL (0.2-1.2); Calc. Creatinine Clearance 0 mL/min (70-130); Calcium 9.9 mg/dL (7.8-10.44); Carbon Dioxide 25 mmol/L (22-29); Chloride 106 mmol/L (98-107); Estimated GFR 83; Glucose 108 mg/dL (70-105); Potassium 3.9 mmol/L (3.5-5.1); Protein, Total 8.2 g/dL (6.0-8.3); Sodium 139 mmol/L (136-145)
[2024-01-01 14:04] LABS: Troponin I Less than 0.010 ng/mL (< 0.028)
[2024-01-01] MEDS ORDERED: Ketorolac Tromethamine 30 MG (1 mL) VIAL ONE (15:57)
== END 2024-01-01 16:10 | disposition home or self-care (01) ==
LOC: ERS 13:01
DX: S13.4XXA Sprain of ligaments of cervical spine, initial encounter (principal); S60.812A Abrasion of left wrist, initial encounter; S30.1XXA Contusion of abdominal wall, initial encounter; M54.9 Dorsalgia, unspecified; V89.2XXA Person injured in unspecified motor-vehicle accident, traffic, initial encounter
CPT/HCPCS: 70450; 71260; 74177; 80053; 84484; 84703; 85025; 93005; 96374; J1885